=== PATIENT | male | born 1970 | race African-American/Black ===

== ENCOUNTER 2016-12-18 10:27 | Emergency (ER) | payer OTHER ==
[~2016-12-18] VITALS: Ht 180.3 cm; Wt 98.7 kg
[~2016-12-18 10:27] MED LIST: BENADRYL50 MG PO; EPIPEN ADU0.3 MG/0.3 IM; HYDROCHLOROTHIA25 MG PO; NAPROSYN500 MG PO; NO HOME MEDS; PREDNISONE10 M1 PO; ROBAXIN500 MG PO; ULTRAM50 MG PO
[2016-12-18 13:10] VITALS: BP 102/57
== END 2016-12-18 13:11 | disposition home or self-care (01) ==
LOC: EME 10:27
DX: S90.821A Blister (nonthermal), right foot, initial encounter (principal); I10 Essential (primary) hypertension; F17.200 Nicotine dependence, unspecified, uncomplicated
CPT/HCPCS: 73630; 99281; 99283

== ENCOUNTER 2017-03-06 08:30 | Emergency (ER) | payer OTHER ==
[~2017-03-06] VITALS: Ht 180.3 cm; Wt 96.9 kg
[2017-03-06] MEDS ORDERED: MOTRIN600 MG PO (08:46)
[2017-03-06] MEDS ORDERED: TRAMADOL HCL50 MG PO (08:46)
[2017-03-06 09:03] VITALS: BP 114/69
== END 2017-03-06 09:06 | disposition home or self-care (01) ==
LOC: EME 08:30
DX: M54.5 Low back pain (principal); I10 Essential (primary) hypertension; F17.200 Nicotine dependence, unspecified, uncomplicated
CPT/HCPCS: 99281; 99284

== ENCOUNTER 2017-08-21 17:25 | Emergency (ER) | payer OTHER ==
[~2017-08-21] VITALS: Ht 180.3 cm; Wt 81.2 kg
[~2017-08-21 17:25] MED LIST changes: +MOTRIN600 MG PO; +TRAMADOL HCL50 MG PO
[2017-08-21 18:00] VITALS: BP 126/82
[2017-08-22] MEDS ORDERED: NAPROSYN500 MG PO (00:02)
[2017-08-22] MEDS ORDERED: EPIPEN ADU0.3 MG/0.3 IM (10:46)
[2017-08-22] MEDS ORDERED: PREDNISONE20 MG PO (10:46)
[2017-08-22] MEDS ORDERED: PREDNISONE50 MG PO (10:49)
== END 2017-08-21 19:25 | disposition left against medical advice (07) ==
LOC: EME 17:25
DX: M25.521 Pain in right elbow (principal); M25.511 Pain in right shoulder; W18.2XXA Fall in (into) shower or empty bathtub, initial encounter; Y93.E1 Activity, personal bathing and showering; Y92.002 Bathroom of unspecified non-institutional (private) residence as the place of occurrence of the external cause; Z53.21 Procedure and treatment not carried out due to patient leaving prior to being seen by health care provider

== ENCOUNTER 2017-08-21 23:04 | Emergency (ER) | payer OTHER ==
[~2017-08-21] VITALS: Ht 180.3 cm; Wt 95.4 kg
[2017-08-22] MEDS ORDERED: NAPROSYN500 MG PO (00:02)
[2017-08-22 00:21] VITALS: BP 122/94
[2017-08-22] MEDS ORDERED: EPIPEN ADU0.3 MG/0.3 IM (10:46)
[2017-08-22] MEDS ORDERED: PREDNISONE20 MG PO (10:46)
[2017-08-22] MEDS ORDERED: PREDNISONE50 MG PO (10:49)
== END 2017-08-22 00:30 | disposition home or self-care (01) ==
LOC: EME 23:04
DX: S43.401A Unspecified sprain of right shoulder joint, initial encounter (principal); W18.2XXA Fall in (into) shower or empty bathtub, initial encounter; Y93.E1 Activity, personal bathing and showering; Y92.002 Bathroom of unspecified non-institutional (private) residence as the place of occurrence of the external cause
CPT/HCPCS: 73030; 99281; 99284

== ENCOUNTER 2017-08-22 07:37 | Emergency (ER) | payer OTHER ==
[~2017-08-22] VITALS: Ht 175.3 cm; Wt 96.4 kg
[2017-08-22] MEDS ORDERED: EPIPEN ADU0.3 MG/0.3 IM (10:46)
[2017-08-22] MEDS ORDERED: PREDNISONE20 MG PO (10:46)
[2017-08-22] MEDS ORDERED: PREDNISONE50 MG PO (10:49)
[2017-08-22 10:55] VITALS: BP 129/82
== END 2017-08-22 10:57 | disposition home or self-care (01) ==
LOC: EME 07:37
DX: R22.1 Localized swelling, mass and lump, neck (principal); T39.315A Adverse effect of propionic acid derivatives, initial encounter; T78.3XXA Angioneurotic edema, initial encounter; I10 Essential (primary) hypertension; F17.200 Nicotine dependence, unspecified, uncomplicated
CPT/HCPCS: 99281; 99283; J1200; J2930; S0028